=== PATIENT | male | born 1950 | race Caucasian/White ===

== ENCOUNTER 2017-04-10 09:38 | Emergency (ER) | payer MEDICAID, OTHER ==
[2017-04-10] MEDS ORDERED: Sodium Chloride 0.9% 500 ML IV ONE (09:49)
[2017-04-10] MEDS ORDERED: Sodium Chloride 0.9% 10 ML Syringe FLUSH PRN (09:49)
--- NOTE | 2017-04-10 10:26 | CT ---
Head CT Technique: Multiple axial sections through the brain were obtained. Intravenous contrast was not utilized. Comparison: No previous intracranial imaging. Findings: Parenchymal hemorrhage is identified within the right basal ganglia. This area of hemorrhage measures 1.5 cm in size and shows surrounding edema. No other areas of intracranial hemorrhage are seen. Mild diminished density is noted within the periventricular white matter compatible with small vessel ischemic demyelination change. No midline shift or mass effect is appreciated. Vascular calcification is seen within the right vertebral artery. Bone window settings were reviewed which shows mild mucosal thickening within the ethmoid sinuses and mild mucosal thickening within the frontal sinuses. No acute calvarial abnormality is seen. Impression: 1. Right-sided basal ganglia hemorrhage. Please correlate if patient is hypertensive. 2. Other senescent change as described above. 3. Sinus disease most likely chronic but please correlate. Diagnostic code #5
--- NOTE | 2017-04-10 11:04 | EDM.PDOC ---
ED HPI GENERAL MEDICAL PROBLEM - General Chief Complaint: Neuro Symptoms/Deficits Stated Complaint: LT SIDE TINGLY AND TROUBLE WALKING Time Seen by Provider: 04/10/17 09:48 Source of Information: Reports: Patient, RN Notes Reviewed - History of Present Illness INITIAL COMMENTS - FREE TEXT/NARRATIVE: 66-year-old male comes in with three-day history of stroke type symptoms. Symptoms began this past Monday 3 days ago onset of left foot and left leg clumsiness and weakness. Around the same time he did develop paresthesias of his left hand and some weakness and clumsiness of the left hand as well. He states that for the first day or 2 it was difficult to walk and he could not do anything fine motor with his left hand or arm. Symptoms gradually became better yesterday and today he feels that he is getting back close to normal. He still feels that he is a bit weak and clumsy with his left foot and leg. He feels that his left hand strength is about back to normal. The paresthesias of his hand and arm are gone. He did have some mild left facial paresthesias and they also are gone. He never had any headache or chest pain with this. No nausea vomiting. No visual or speech difficulty. - Related Data Allergies Allergy/AdvReac Type Severity Reaction Status Date / Time No Known Allergies Allergy Verified 07/13/15 12:27 Home Meds: Home Meds amLODIPine [Norvasc] 10 mg PO BEDTIME #30 tablet 07/13/15 [Rx] Aspirin [Ecotrin] 81 mg PO DAILY 04/10/17 [History] FLUoxetine [PROzac] 20 mg PO DAILY 04/10/17 [History] Hydrochlorothiazide 25 mg PO DAILY 04/10/17 [History] atorvaSTATin [Lipitor] 10 mg PO DAILY 04/10/17 [History] Past Medical History Cardiovascular History: Reports: High Cholesterol, Hypertension Respiratory History: Reports: COPD Psychiatric History: Reports: Addiction, Anxiety, Panic Attack Social & Family History - Tobacco Use Smoking Status *Q: Current Some Day Smoker Years of Tobacco use: 25 Packs/Tins Daily: 0.2 - Alcohol Use Days Per Week of Alcohol Use: 7 Number of Drinks Per Day: 10 Total Drinks Per Week: 70 - Recreational Drug Use Recreational Drug Use: No ED ROS GENERAL - Review of Systems Review Of Systems: See Below Constitutional: Denies: Fever, Chills, Diaphoresis HEENT: Denies: Throat Pain, Vertigo, Vision Change Respiratory: Denies: Shortness of Breath, Pleuritic Chest Pain Cardiovascular: Denies: Chest Pain GI/Abdominal: Denies: Abdominal Pain, Nausea, Vomiting Musculoskeletal: Denies: Neck Pain, Shoulder Pain, Arm Pain Skin: Reports: No Symptoms Neurological: Reports: Numbness (left hand and arm), Difficulty Walking, Weakness (left upper and left lower extremity, moderately severe at time of onset 3 days ago, now almost completely back to normal). Denies: Headache, Trouble Speaking ED EXAM, NEURO - Physical Exam Exam: See Below General Appearance: Alert, Anxious (mild) Eye Exam: Bilateral Eye: EOMI, PERRL Throat/Mouth: Normal Inspection, Normal Oropharynx Head Exam: Atraumatic. No: Facial Swelling Neck: Supple, Full Range of Motion Respiratory/Chest: No Respiratory Distress, Lungs Clear, Normal Breath Sounds Cardiovascular: Regular Rate, Rhythm GI/Abdominal: Soft, Non-Tender Neurological: Alert, Oriented x 3, Other (very slight ataxia left hand with finger to nose testing, no noticeable hairspring vibrator or strength deficit of the left hand or arm, good left lower extremity strength. When walking he still feels that his left foot and leg is "mildly weak", but ambulatory without difficulty at this time.) Back Exam: Normal Inspection. No: CVA Tenderness (L) Extremities: Normal Inspection, Normal Range of Motion Skin Exam: Warm, Dry, Normal Color Course - Vital Signs Last Recorded V/S: Last Vital Signs Temp 98.5 F 04/10/17 09:43 Pulse 75 04/10/17 12:46 Resp 16 04/10/17 13:01 BP 154/103 H 04/10/17 13:01 Pulse Ox 95 04/10/17 12:46 - Orders/Labs/Meds Orders: Active Orders 24 hr Category Date Time Status EKG 12 Lead [EKG Documentation Completion] [RC] STAT Care 04/10/17 09:48 Active Peripheral IV Care [RC] . DIRECTED Care 04/10/17 09:49 Active Sodium Chloride 0.9% [Saline Flush] Med 04/10/17 09:49 Active 10 ml FLUSH ASDIRECTED PRN Peripheral IV Insertion Adult [OM.PC] Stat Oth 04/10/17 09:49 Ordered Medication Orders Sodium Chloride (Saline Flush) 10 ml FLUSH ASDIRECTED PRN PRN Reason: Keep Vein Open Last Admin: 04/10/17 10:07 Dose: 10 ml Labs: Laboratory Tests 04/10/17 04/10/17 Range/Units 09:55 09:55 WBC 6.94 (4.23-9.07) K/mm3 RBC 5.30 (4.63-6.08) M/mm3 Hgb 14.4 (13.7-17.5) gm/L Hct 43.6 (40.1-51.0) % MCV 82.3 (79.0-92.2) fl MCH 27.2 (25.7-32.2) pg MCHC 33.0 (32.2-35.5) g/dl RDW Std Deviation 43.4 (35.1-43.9) fL Plt Count 297 (163-337) K/mm3 MPV 8.8 L (9.4-12.3) fl Neut % (Auto) 64.1 (34.0-67.9) % Lymph % (Auto) 23.5 (21.8-53.1) % [place] % (Auto) 7.1 (5.3-12.2) % Eos % (Auto) 4.3 (0.8-7.0) Baso % (Auto) 0.7 (0.1-1.2) % Neut # (Auto) 4.45 (1.78-5.38) K/mm3 Lymph # (Auto) 1.63 (1.32-3.57) K/mm3 [place] # (Auto) 0.49 (0.30-0.82) K/mm3 Eos # (Auto) 0.30 (0.04-0.54) K/mm3 Baso # (Auto) 0.05 (0.01-0.08) K/mm3 Sodium 138 (136-145) mEq/L Potassium 4.1 (3.5-5.1) mEq/L Chloride 103 (98-107) mEq/L Carbon Dioxide 25 (21-32) mEq/L Anion Gap 14.1 (5-15) BUN 14 (7-18) mg/dL Creatinine 0.8 (0.7-1.3) mg/dL Est Cr Clr Drug Dosing TNP Estimated GFR (MDRD) > 60 (>60) mL/min BUN/Creatinine Ratio 17.5 (14-18) Glucose 110 (80-115) mg/dL Calcium 9.5 (8.5-10.1) mg/dL Total Bilirubin 0.9 (0.2-1.0) mg/dL AST 16 (15-37) U/L ALT 32 (16-63) U/L Alkaline Phosphatase 62 (46-116) U/L Total Protein 8.2 (6.4-8.2) g/dl Albumin 4.4 (3.4-5.0) g/dl Globulin 3.8 gm/dL Albumin/Globulin Ratio 1.2 (1-2) Meds: Medications Generic Name Dose Route Start Last Admin Trade Name Freq PRN Reason Stop Dose Admin Sodium Chloride 10 ml 04/10/17 09:49 04/10/17 10:07 Saline Flush FLUSH 10 ml ASDIRECTED PRN Administration Keep Vein Open Discontinued Medications Generic Name Dose Route Start Last Admin Trade Name Freq PRN Reason Stop Dose Admin Sodium Chloride 500 mls @ 999 mls/hr 04/10/17 09:49 04/10/17 10:06 Normal Saline IV 04/10/17 10:19 999 mls/hr .BOLUS ONE Administration Labetalol HCl 20 mg 04/10/17 11:46 04/10/17 11:59 Normodyne IVPUSH 04/10/17 11:47 20 mg ONETIME ONE Administration Protocol Labetalol HCl 20 mg 04/10/17 12:40 04/10/17 12:45 Normodyne IVPUSH 04/10/17 12:41 20 mg ONETIME ONE Administration Protocol Lorazepam 0.5 mg 04/10/17 12:00 04/10/17 12:07 Ativan IVPUSH 04/10/17 12:01 0.5 mg ONETIME ONE Administration - Re-Assessments/Exams Free Text/Narrative Re-Assessment/Exam: 04/10/17 14:57 stroke alert was called upon patient arrival. I did see patient within one or 2 minutes of arrival to ED. Note he did present private vehicle having first either called or presenting to the clinic and instructed to immediately come here to the ED. History is as documented with onset of symptoms fairly suddenly [address] did show 1.5 cm hemorrhage of the right basal ganglia region , see Radiologist report for details. We did call [facility] call with request to visit with Neurologist [employer] conservation laborer. I was initially referred to the Neurosurgeon [employer] conservation laborer, Dr Clark who was very helpful in discussing the case. He states there is really nothing that he as a Neurosurgeon can or would do for this patient. He stated treatment needs to be medical management, blood pressure control. I did request to visit with the Neurologist [employer] laborer regarding appropriate management and plan for this patient. I was informed by the [facility] Nurse that when he heard about what the patient had he replied "there is nothing for me to do" and refused to speak to me regarding further management. I did visit with one of the Hospitalists [employer] conservation laborer who was willing to accept the patient in transfer but advises that we should be able to admit and manage the patient here, especially with the 3 day hx of marked improvment. Patient absolutely refuses to be admitted when I discussed that with him. He states he gets extremely anxious and stressed when in a hospital and "will do much better at home". I discussed with him the severity of having had this intracerebral hemorrhage and the possibility that this could progress if blood pressure not given optimal medical management. Have stressed to him that with him going home we cannot monitor and manage his blood pressure to the extent that we could if he were here in the hospital. He continues to insist that he be allowed to go home, absolutely unwilling to come into the hospital at this time. Therefore we have had him sign out AMA with awareness of the risk of going home, the risk of further hemorrhage, more severe stroke and possibly even . I'm going to add metoprolol 50 mg twice a day to the amlodipine and hydrochlorothiazide that he is already taking. He has been advised to have his blood pressure checked once or twice daily, keep a log. Discussed this with Dr Palomares, His Family Phys. we'll see him at the clinic this next morning 3 days from now. Discharge instructions as documented. labs are as documented EKG shows sinus rhythm, rate 81, no ectopy. But pressure was high and arrival, improved and then did work its way higher again intermittently. Therefore he was treated with labetalol 20 mg IV 2. Departure - Departure Time of Disposition: 12:46 Disposition: Home, Self-Care 01 Condition: Fair Clinical Impression: Hypertensive intracerebral hemorrhage - Discharge Information Instructions: Stroke Prevention, [id number] Referrals: Edith Calvert MD [Primary Care Provider] - Forms: ED Department Discharge Additional Instructions: Hospital admission has strongly been advised. You have chosen to go home and accept the risk of going home. Stop your daily aspirin, continue amlodipine, hydrochlorothiazide and Lipitor as previously prescribed. Metoprolol 50 mg twice daily starting today. Low-salt healthy diet. Try have your blood pressure checked once or twice daily and keep a record of your blood pressure and heart rate from each reading for Dr. Palomares. see Dr. Delgado 11:15 this morning at the clinic. Return to ED if symptoms worsening in any way. - My Orders Last 24 Hours: My Active Orders 04/10/17 09:48 EKG 12 Lead [EKG Documentation Completion] [RC] STAT 04/10/17 09:49 Peripheral IV Care [RC] . DIRECTED Sodium Chloride 0.9% [Saline Flush] 10 ml FLUSH ASDIRECTED PRN Peripheral IV Insertion Adult [OM.PC] Stat - Assessment/Plan Last 24 Hours: My Active Orders 04/10/17 09:48 EKG 12 Lead [EKG Documentation Completion] [RC] STAT 04/10/17 09:49 Peripheral IV Care [RC] . DIRECTED Sodium Chloride 0.9% [Saline Flush] 10 ml FLUSH ASDIRECTED PRN Peripheral IV Insertion Adult [OM.PC] Stat
[2017-04-10] MEDS ORDERED: Labetalol 100 MG/20 ML MDV IVPUSH ONE ×2 (11:46→12:40)
[2017-04-10] MEDS ORDERED: LORazepam 2 MG/ML MDV IVPUSH ONE (12:00)
[2017-04-10 13:12] VITALS: BP 154/103
== END 2017-04-10 13:32 | disposition home or self-care (01) ==
LOC: JD.ED 09:38
DX: I61.9 Nontraumatic intracerebral hemorrhage, unspecified (principal); I10 Essential (primary) hypertension; F17.210 Nicotine dependence, cigarettes, uncomplicated; E78.00 Pure hypercholesterolemia, unspecified; Z79.82 Long term (current) use of aspirin; Z79.899 Other long term (current) drug therapy
CPT/HCPCS: 36415; 70450; 80053; 85025; 93005; 96361; 96374; 96375; 96376; 99285; J2060; J7040; J7050

== ENCOUNTER 2018-07-22 16:46 | Emergency (ER) | payer MEDICARE, MEDICAID ==
[2018-07-22] MEDS ORDERED: LORazepam 2 MG/ML SDV IVPUSH ONE (17:59)
[2018-07-22 19:25] VITALS: BP 163/102
--- NOTE | 2018-07-22 19:29 | CR ---
Chest: Portable view of the chest was obtained. Comparison: Prior chest x-ray of 07/13/15. Heart size and mediastinum are within normal limits for portable technique. Small nodular density is noted within the left upper chest. Lungs otherwise are clear. Bony structures are grossly intact. Impression: 1. Small nodular density within the left upper chest, small mass is difficult to completely exclude. Noncontrast chest CT is recommended (can be performed non-emergently) to further evaluate. 2. Nothing acute is otherwise seen on portable chest x-ray. Diagnostic code #9
--- NOTE | 2018-07-22 20:13 | EDM.PDOC ---
ED HPI GENERAL MEDICAL PROBLEM - General Chief Complaint: Drug or Alcohol Abuse Stated Complaint: [facility] Source of Information: Reports: Patient History Limitations: Reports: No Limitations - History of Present Illness Treatments [employer]: Reports: IV/IO - Related Data Allergies Allergy/AdvReac Type Severity Reaction Status Date / Time No Known Allergies Allergy Verified 07/22/18 16:52 Home Meds: Home Meds amLODIPine [Norvasc] 10 mg PO BEDTIME #30 tablet 07/13/15 [Rx] atorvaSTATin [Lipitor] 10 mg PO DAILY 04/10/17 [History] Citalopram [Citalopram HBr] 40 mg PO DAILY 07/22/18 [History] Citalopram [Citalopram HBr] 40 mg PO DAILY #40 tab 07/22/18 [Rx] LORazepam 1 mg PO ASDIRECTED PRN 07/22/18 [History] LORazepam [Ativan] 1 mg PO DAILY PRN #20 tablet 07/22/18 [Rx] amLODIPine Besylate [Norvasc] 10 mg PO DAILY #20 tablet 07/22/18 [Rx] atorvaSTATin [Lipitor] 10 mg PO BEDTIME #20 tab 07/22/18 [Rx] Past Medical History Cardiovascular History: Reports: High Cholesterol, Hypertension Respiratory History: Reports: COPD Neurological History: Reports: CVA Other Neuro History: cva 2017 Psychiatric History: Reports: Addiction, Anxiety, Panic Attack Dermatologic History: Reports: Other (See Below) Other Dermatologic History: acne Social & Family History - Tobacco Use Smoking Status *Q: Former Smoker Years of Tobacco use: 40 Packs/Tins Daily: 2 Used Tobacco, but Quit: Yes Month/Year Tobacco Last Used: Tobacco Use Comment: quit 2 months ago Second Hand Smoke Exposure: No - Caffeine Use Caffeine Use: Reports: Coffee - Alcohol Use Days Per Week of Alcohol Use: 5 Number of Drinks Per Day: 12 Total Drinks Per Week: 60 Date of Last Drink: 07/22/18 Time of Last Drink: 09:00 - Recreational Drug Use Recreational Drug Use: No EKG INTERPRETATION EKG Date: 07/22/18 Time: 18:11 Rhythm: NSR Rate (Beats/Min): 91 [place]: Normal P-Wave: Present QRS: Normal ST-T: Normal QT: Normal EKG Interpretation Comments: NSR at 91 bpm. Q waves inferior and anterior. No acute ST segment changes. Reviewed by myself and DR. Singh. Course - Vital Signs Last Recorded V/S: Last Vital Signs Temp 97.6 F 07/22/18 16:46 Pulse 99 07/22/18 18:20 Resp 18 07/22/18 16:46 BP 163/102 H 07/22/18 19:24 Pulse Ox 96 07/22/18 16:46 - Orders/Labs/Meds Orders: Active Orders 24 hr Category Date Time Status EKG 12 Lead [EKG Documentation Completion] [RC] STAT Care 07/22/18 18:03 Active Labs: Laboratory Tests 07/22/18 07/22/18 Range/Units 18:55 18:55 WBC 6.65 (4.23-9.07) K/mm3 RBC 5.72 (4.63-6.08) M/mm3 Hgb 14.8 (13.7-17.5) gm/L Hct 42.3 (40.1-51.0) % MCV 74.0 L (79.0-92.2) fl MCH 25.9 (25.7-32.2) pg MCHC 35.0 (32.2-35.5) g/dl RDW Std Deviation 38.1 (35.1-43.9) fL Plt Count 178 (163-337) K/mm3 MPV 8.6 L (9.4-12.3) fl Neut % (Auto) 74.3 H (34.0-67.9) % Lymph % (Auto) 18.2 L (21.8-53.1) % [place] % (Auto) 6.8 (5.3-12.2) % Eos % (Auto) 0.3 L (0.8-7.0) Baso % (Auto) 0.2 (0.1-1.2) % Neut # (Auto) 4.95 (1.78-5.38) K/mm3 Lymph # (Auto) 1.21 L (1.32-3.57) K/mm3 [place] # (Auto) 0.45 (0.30-0.82) K/mm3 Eos # (Auto) 0.02 L (0.04-0.54) K/mm3 Baso # (Auto) 0.01 (0.01-0.08) K/mm3 Manual Slide Review Abnormal smear Sodium 129 L (136-145) mEq/L Potassium 3.5 (3.5-5.1) mEq/L Chloride 90 L (98-107) mEq/L Carbon Dioxide 25 (21-32) mEq/L Anion Gap 17.5 H (5-15) BUN 9 (7-18) mg/dL Creatinine 0.7 (0.7-1.3) mg/dL Est Cr Clr Drug Dosing 118.90 mL/min Estimated GFR (MDRD) > 60 (>60) mL/min BUN/Creatinine Ratio 12.9 L (14-18) Glucose 128 H (80-115) mg/dL Calcium 8.5 (8.5-10.1) mg/dL Total Bilirubin 2.4 H (0.2-1.0) mg/dL AST 155 H (15-37) U/L ALT 171 H (16-63) U/L Alkaline Phosphatase 124 H (46-116) U/L Troponin I < 0.017 (0.00-0.056) ng/mL Total Protein 7.9 (6.4-8.2) g/dl Albumin 4.1 (3.4-5.0) g/dl Globulin 3.8 gm/dL Albumin/Globulin Ratio 1.1 (1-2) Ethyl Alcohol 0.00 (0.00) gm% Meds: Medications Discontinued Medications Generic Name Dose Route Start Last Admin Trade Name Freq PRN Reason Stop Dose Admin Amlodipine Besylate 10 mg 07/22/18 21:00 07/22/18 19:24 Norvasc PO 10 mg BEDTIME MECHLELE Administration Lorazepam 1 mg 07/22/18 17:59 07/22/18 18:04 Ativan IVPUSH 07/22/18 18:00 1 mg ONETIME ONE Administration - Radiology Interpretation Free Text/Narrative:: Chest: Portable view of the chest was obtained. Comparison: Prior chest x-ray of 07/13/15. Heart size and mediastinum are within normal limits for portable technique. Small nodular density is noted within the left upper chest. Lungs otherwise are clear. Bony structures are grossly intact. Impression: 1. Small nodular density within the left upper chest, small mass is difficult to completely exclude. Noncontrast chest CT is recommended (can be performed non-emergently) to further evaluate. 2. Nothing acute is otherwise seen on portable chest x-ray. Departure - Departure Time of Disposition: 20:10 Disposition: Home, Self-Care 01 Condition: Fair Clinical Impression: Hypertension, Hyponatremia, Lung nodule - Discharge Information *PRESCRIPTION DRUG MONITORING PROGRAM REVIEWED*: No *COPY OF PRESCRIPTION DRUG MONITORING REPORT IN PATIENT MISTY: No Prescriptions: amLODIPine Besylate [Norvasc] 10 mg PO DAILY #20 tablet atorvaSTATin [Lipitor] 10 mg PO BEDTIME #20 tab Citalopram [Citalopram HBr] 40 mg PO DAILY #40 tab LORazepam [Ativan] 1 mg PO DAILY PRN #20 tablet PRN Reason: Anxiety Instructions: Hyponatremia, Hypertension Referrals: PCP,None [Primary Care Provider] - Edith Calvert MD [Physician] - Additional Instructions: An order has been placed her you have a noncontrast chest CT to further evaluate the lung nodule. Results will be sent to your PCP. If you do not hear from radiology, call [phone] and ask for radiology to schedule this. Continue taking your medications as prescribed. Follow-up with your PCP within [address] results and a check of your HTN and low sodium. You sodium was slightly low, recommend gatorade, powerade and increasing your salt intake. Check you b/p every other day at different times throughout the day after resting 15 minutes. Record this and bring to your follow-up appointment. Please return to ER for symptoms change or worsen. - My Orders Last 24 Hours: My Active Orders 07/22/18 18:03 EKG 12 Lead [EKG Documentation Completion] [RC] STAT - Assessment/Plan Last 24 Hours: My Active Orders 07/22/18 18:03 EKG 12 Lead [EKG Documentation Completion] [RC] STAT
[2018-07-22] MEDS ORDERED: amLODIPine 10 MG Tab PO SCH (21:00)
== END 2018-07-22 20:45 | disposition home or self-care (01) ==
LOC: JD.ED 16:46
DX: I10 Essential (primary) hypertension (principal); E87.1 Hypo-osmolality and hyponatremia; R91.1 Solitary pulmonary nodule; F41.0 Panic disorder [episodic paroxysmal anxiety]; F41.9 Anxiety disorder, unspecified; E78.00 Pure hypercholesterolemia, unspecified; J44.9 Chronic obstructive pulmonary disease, unspecified; Z86.73 Personal history of transient ischemic attack (TIA), and cerebral infarction without residual deficits; Z87.891 Personal history of nicotine dependence; Z79.899 Other long term (current) drug therapy
CPT/HCPCS: 36415; 71045; 80053; 84484; 85025; 93005; 96374; 99285; A9270; G0480; J2060

== ENCOUNTER 2019-12-02 15:07 | Emergency (ER) | payer MEDICARE, MEDICAID ==
[2019-12-02 15:18] VITALS: PULSE 92
[2019-12-02 15:33] VITALS: BP 161/93
[2019-12-02] MEDS ORDERED: Citalopram 20 MG Tab PO ONE (16:02)
[2019-12-02] MEDS ORDERED: LORazepam 2 MG/ML SDV IVPUSH ONE (16:02)
--- NOTE | 2019-12-02 16:12 | EDM.PDOCBH ---
ED HPI GENERAL MEDICAL PROBLEM - General Chief Complaint: Behavioral/Psych Stated Complaint: [facility] Time Seen by Provider: 12/02/19 15:37 Source of Information: Reports: Patient, RN Notes Reviewed History Limitations: Reports: No Limitations - History of Present Illness INITIAL COMMENTS - FREE TEXT/NARRATIVE: Patient is a 69-year-old male who presents to the ED for the evaluation of his ongoing anxiety. Patient was brought here by [place] ambulance service. The patient notes that he takes citalopram, 40 mg daily and lorazepam 1 mg every 4- 6 hours as needed. Patient notes that he ran out of his medication last week, and has been using alcohol to bridge his anxiety since then. He notes that his last drink was a few hours ago. He states prior to running out of medications he does not use alcohol on a daily basis. The patient states that he has had increased anxiety at home, and states that he ran out of his medications due to taking them more frequently than prescribed to try to curb his anxiety. He was not able to get in touch with Dr. Palomares prior to his prescription running out for a refill. The ambulance did give him 2 mg Ativan in route to the hospital with 500 mL of IV fluid. The patient's primary care provider is Dr. Edith Palomares. - Related Data Allergies Allergy/AdvReac Type Severity Reaction Status Date / Time No Known Allergies Allergy Verified 07/22/18 16:52 Home Meds: Home Meds amLODIPine [Norvasc] 10 mg PO BEDTIME #30 tablet 07/13/15 [Rx] Citalopram [Citalopram HBr] 40 mg PO BEDTIME 07/22/18 [History] LORazepam 1 mg PO ASDIRECTED PRN 07/22/18 [History] atorvaSTATin [Lipitor] 10 mg PO BEDTIME #20 tab 07/22/18 [Rx] Citalopram [Citalopram HBr] 40 mg PO BEDTIME #14 tab 12/02/19 [Rx] LORazepam [Ativan] 1 mg PO TID PRN #20 tab 12/02/19 [Rx] Past Medical History Cardiovascular History: Reports: High Cholesterol, Hypertension Respiratory History: Reports: COPD Neurological History: Reports: CVA Other Neuro History: cva 2016 Psychiatric History: Reports: Addiction, Anxiety, Panic Attack Dermatologic History: Reports: Other (See Below) Other Dermatologic History: acne Social & Family History - Tobacco Use Smoking Status *Q: Light Tobacco Smoker Years of Tobacco use: 40 Packs/Tins Daily: 0.1 - Caffeine Use Caffeine Use: Reports: Coffee - Recreational Drug Use Recreational Drug Use: Yes Drug Use in Last 12 Months: No Recreational Drug Type: Reports: Cocaine ED ROS GENERAL - Review of Systems Review Of Systems: Comprehensive ROS is negative, except as noted in HPI. ED EXAM, BEHAVIORAL HEALTH - Physical Exam Exam: See Below Exam Limited By: No Limitations General Appearance: Alert, WD/WN, No Apparent Distress, Anxious (mildy anxious) Eye Exam: Bilateral Eye: EOMI Ears: Normal External Exam Nose: Normal Inspection Throat/Mouth: Normal Inspection, Normal Lips, Normal Teeth, Normal Gums, Normal Oropharynx, Normal Voice, No Airway Compromise Head: Atraumatic, Normocephalic Neck: Normal Inspection Respiratory/Chest: No Respiratory Distress, Lungs Clear, Normal Breath Sounds, No Accessory Muscle Use, Chest Non-Tender Cardiovascular: Normal Peripheral Pulses, Regular Rate, Rhythm, No Murmur GI/Abdominal: Normal Bowel Sounds, Soft, Non-Tender, No Distention, No Mass Extremities: Normal Inspection, Normal Capillary Refill Neurological: Alert, Normal Mood/Affect, Normal Cognition, Normal Reflexes, No Motor/Sensory Deficits, Oriented x 3 Psychiatric: Alert, Normal Affect, Normal Cognition, Normal Mood, Oriented Skin Exam: Warm, Dry, Intact, Normal color, No rash COURSE, BEHAVIORAL HEALTH COMP - Course Vital Signs: Last Vital Signs Temp 98.0 F 12/02/19 15:09 Pulse 92 12/02/19 15:09 Resp 20 12/02/19 15:09 BP 161/93 H 12/02/19 15:33 Pulse Ox 91 L 12/02/19 15:09 Orders, Labs, Meds: Active Orders 24 hr Category Date Time Status LORazepam [Ativan] Med 12/02/19 16:16 Once 4 mg PO ONETIME ONE Medications Discontinued Medications Generic Name Dose Route Start Last Admin Trade Name Freq PRN Reason Stop Dose Admin Citalopram Hydrobromide 40 mg 12/02/19 16:02 Celexa PO 12/02/19 16:03 ONETIME ONE Lorazepam 1 mg 12/02/19 16:02 Ativan IVPUSH 12/02/19 16:03 ONETIME ONE Discharge vs Psych Eval/Treatment:: 12/02/19 16:10 Patient presents to the ED for evaluation of a few different complaints. Have ordered 1 mg Ativan IV push, and 40 mg p.o. citalopram to get him back on his regular regimen. There are no emergent problems made apparent at today's visit , patient does not want any sort of labs done at this time, and again there is no emergent condition noted today to have to warrant further laboratory evaluation. I will provide the patient with a prescription for at least 1 weeks worth of his regular medications in hopes that he can get in with Dr. Palomares sooner to have her reevaluate his med regimen and refill his prescriptions as needed. Departure - Departure Time of Disposition: 16:12 Disposition: Home, Self-Care 01 Condition: Good Clinical Impression: Anxiety - Discharge Information *PRESCRIPTION DRUG MONITORING PROGRAM REVIEWED*: Yes *COPY OF PRESCRIPTION DRUG MONITORING REPORT IN PATIENT MISTY: No Prescriptions: Citalopram [Citalopram HBr] 40 mg PO BEDTIME #14 tab LORazepam [Ativan] 1 mg PO TID PRN #20 tab PRN Reason: Anxiety Instructions: Living With Anxiety Referrals: Edith Calvert MD [Physician] - Forms: ED Department Discharge Additional Instructions: You were evaluated in the ER today regarding your need for a prescription refill , and increased anxiety. You were given 1 more dose of Ativan in the ER, and the dose of your regular antianxiety medication, citalopram. You were given a prescription for outpatient use of this, you will need to fill this at the [place] pharmacy tomorrow. You were given 2 doses of Ativan, you will need to take 2 mg tonight, and again 2 mg in the morning. You will need to call and have a talk with your provider, Dr. Palomares to obtain an appointment for reevaluation and to see if she would like to switch her medications or increase her dosage, or otherwise. Please return to the ER at any time if symptoms change or worsen. Sepsis Event Note - Evaluation Sepsis Screening Result: No Definite Risk - Focused Exam Vital Signs: Vital Signs Temp Pulse Resp BP Pulse Ox 12/02/19 15:33 161/93 H 12/02/19 15:09 98.0 F 92 20 186/105 H 91 L Date Exam was Performed: 12/02/19 Time Exam was Performed: 16:17 - My Orders Last 24 Hours: My Active Orders 12/02/19 16:16 LORazepam [Ativan] 4 mg PO ONETIME ONE - Assessment/Plan Last 24 Hours: My Active Orders 12/02/19 16:16 LORazepam [Ativan] 4 mg PO ONETIME ONE
[2019-12-02] MEDS ORDERED: LORazepam 1 MG Tab PO ONE (16:16)
== END 2019-12-02 16:37 | disposition home or self-care (01) ==
LOC: JD.ED 15:07
DX: F41.9 Anxiety disorder, unspecified (principal); I10 Essential (primary) hypertension; E78.00 Pure hypercholesterolemia, unspecified; F17.210 Nicotine dependence, cigarettes, uncomplicated; Z79.899 Other long term (current) drug therapy
CPT/HCPCS: 96374; 99284; A9270; J2060; 99283

== ENCOUNTER 2021-10-17 14:34 | Emergency (ER) | payer MEDICARE, MEDICAID ==
[2021-10-17 14:44] VITALS: BP 133/111; PULSE 91
[2021-10-17] MEDS ORDERED: Acetaminophen 325 MG Tab PO ONE (15:22)
== END 2021-10-17 16:24 | disposition home or self-care (01) ==
LOC: JD.ED 14:34
DX: S82.832A Other fracture of upper and lower end of left fibula, initial encounter for closed fracture (principal); J44.9 Chronic obstructive pulmonary disease, unspecified; E78.00 Pure hypercholesterolemia, unspecified; I10 Essential (primary) hypertension; Z72.0 Tobacco use; Z79.899 Other long term (current) drug therapy; Z86.16 Personal history of COVID-19; W18.39XA Other fall on same level, initial encounter
CPT/HCPCS: 73610; 99283; A9270

== ENCOUNTER 2021-11-03 09:16 | Day surgery (SDC) | payer MEDICARE, MEDICAID ==
[~2021-11-03 09:16] MED LIST: Albuterol 0.083% 2.5 MG/3 ML Neb Soln NEB ONE; Lactated Ringers 1,000 ML IV SCH; Lidocaine 1%/Sod Bicarbonate in NS 8.4% 1 ML Syringe IDERM PRN; Sodium Chloride 0.9% 10 ML Syringe FLUSH PRN; Sodium Chloride 0.9% 10 ML Syringe FLUSH SCH
[2021-11-03] MEDS ORDERED: Ropivacaine 0.5% 5 MG/ML 30 ML SDV ONE (10:00)
[2021-11-03] MEDS ORDERED: EPINEPHrine 1 MG/ML SDV ONE (10:00)
[2021-11-03] MEDS ORDERED: Midazolam 1 MG/ML 2 ML SDV ONE ×2 (10:09→10:45)
[2021-11-03] MEDS ORDERED: fentaNYL 100 MCG/2 ML SDV ONE (10:09)
[2021-11-03] MEDS ORDERED: Ondansetron 4 MG/2 ML SDV ONE (10:45)
[2021-11-03] MEDS ORDERED: Propofol 200 MG/20 ML SDV ONE ×2 (10:45→11:02)
[2021-11-03] MEDS ORDERED: Lidocaine 1% 4 ML ONE (10:45)
[2021-11-03] MEDS ORDERED: fentaNYL 250 MCG/5 ML SDV ONE (10:46)
[2021-11-03] MEDS ORDERED: Bupivacaine 0.25% 10 ML SDV ONE (10:47)
[2021-11-03] MEDS ORDERED: ceFAZolin 1 GM Vial ONE (11:08)
[2021-11-03] MEDS ORDERED: fentaNYL 100 MCG/2 ML SDV IVPUSH PRN (11:24)
[2021-11-03] MEDS ORDERED: Ondansetron 4 MG/2 ML SDV IVPUSH PRN (11:24)
[2021-11-03] MEDS ORDERED: HYDROmorphone 0.5 MG/0.5 ML Syringe IVPUSH PRN (11:24)
[2021-11-03] MEDS ORDERED: Ketorolac 15 MG/ML SDV ONE (12:22)
[2021-11-03] MEDS ORDERED: Acetaminophen/HYDROcodone 325-5 MG Tab PO ONE (13:30)
[2021-11-03 14:38] VITALS: BP 130/74; PULSE 70
== END 2021-11-03 14:05 | disposition home or self-care (01) ==
LOC: JD.SDS 09:16
PROVIDERS: ATTEND Orthopaedic Surgery
DX: S82.842A Displaced bimalleolar fracture of left lower leg, initial encounter for closed fracture (principal); J45.30 Mild persistent asthma, uncomplicated; I10 Essential (primary) hypertension; F17.210 Nicotine dependence, cigarettes, uncomplicated; E78.00 Pure hypercholesterolemia, unspecified; J44.9 Chronic obstructive pulmonary disease, unspecified; Z79.899 Other long term (current) drug therapy; Z98.890 Other specified postprocedural states
CPT/HCPCS: 27814; 27829; 36415; 76000; 85610; 85730; C1713; C1776; J0171; J0690; J1885; J2250; J2405; J2704; J2795; J3010; J3490; J7120; 01480; 64450; 76942

== ENCOUNTER 2023-04-13 22:16 | Emergency (ER) | payer MEDICAID, MEDICARE ==
[2023-04-13 22:49] LABS: BASOPHILS ABSOLUTE AUTO 0.1 K/mm3 (0.0-0.2); BASOPHILS PERCENT AUTO 0.6 % (0.0-1.0); EOSINOPHILS ABSOLUTE AUTO 0.2 K/mm3 (0.0-0.4); EOSINOPHILS PERCENT AUTO 1.5 % (0.0-6.0); HEMATOCRIT 45.6 % (42.0-52.0); HEMOGLOBIN 15.6 gm/dl (14.0-18.0); IMMATURE GRAN ABSOLUTE AUTO 0.06 K/mm3 (0.00-0.05); IMMATURE GRAN PERCENT AUTO 0.6 % (0.0-0.4); LYMPHOCYTES PERCENT AUTO 18.9 % (24.0-44.0); MEAN CORPUSCULAR HEMOGLOBIN 28.1 pg (28.0-32.0); MEAN CORPUSCULAR HGB CONC 34.2 g/dl (32.0-36.0); MEAN PLATELET VOLUME 8.4 fl (9.4-12.4); MONOCYTES ABSOLUTE AUTO 0.7 K/mm3 (0.0-0.8); MONOCYTES PERCENT AUTO 6.6 % (0.0-8.0); NEUTROPHILS ABSOLUTE AUTO 7.5 K/mm3 (1.8-7.7); NEUTROPHILS PERCENT AUTO 71.8 % (41.0-71.0); PLATELET COUNT,PLT 236 K/mm3 (150-400); RED BLOOD CELL COUNT 5.56 M/mm3 (4.52-5.90); WHITE BLOOD CELL COUNT,WBC 10.39 K/mm3 (3.9-11.3)
[2023-04-13 23:18] LABS: A/G RATIO 0.9 (1-2); ALBUMIN 3.8 g/dl (3.4-5.0); ANION GAP 16.7 (5-15); BILIRUBIN TOTAL 1.1 mg/dL (0.2-1.0); BUN/CREATININE RATIO 8.6 (14-18); CALCIUM 9.5 mg/dL (8.5-10.1); CREATININE 0.7 mg/dL (0.7-1.3); EST CRCL DRUG DOSING (CG) 114.17 mL/min; ETHANOL BLOOD MEDICAL 0.01 gm% (0.00); POTASSIUM,K 3.7 mEq/L (3.5-5.1); PROTEIN TOTAL,TP 7.9 g/dl (6.4-8.2); TSH 1.731 uIU/mL (0.358-3.74)
[2023-04-14 00:09] LABS: BARBITURATE SCREEN,URINE NEGATIVE (CUTOFF=200); BENZODIAZEPINES SCREEN,URINE PRESUMPTIVE POSITIVE (CUTOFF=150); BUPRENORPHINE SCREEN,URINE NEGATIVE (CUTOFF=10); METHADONE SCREEN, URINE NEGATIVE (CUT0FF=200); METHAMPHETAMINES SCREEN, URINE NEGATIVE (CUTOFF=500); OXYCODONE SCREEN,URINE NEGATIVE (CUT0FF=100); PROPOXYPHENE SCREEN,URINE NEGATIVE (CUTOFF=300); THC SCREEN,URINE 20 NG/ML NEGATIVE (CUTOFF=50)
[2023-04-14 00:14] LABS: AMPHETAMINES SCREEN, URINE NEGATIVE (CUTOFF=500)
[2023-04-14 01:55] VITALS: BP 163/94; PULSE 84
== END 2023-04-14 01:50 ==
LOC: JD.ED 22:16
DX: S06.5X0A Traumatic subdural hemorrhage without loss of consciousness, initial encounter (principal); E78.00 Pure hypercholesterolemia, unspecified; I10 Essential (primary) hypertension; J44.9 Chronic obstructive pulmonary disease, unspecified; Z86.73 Personal history of transient ischemic attack (TIA), and cerebral infarction without residual deficits; Z86.16 Personal history of COVID-19; Z79.01 Long term (current) use of anticoagulants; W19.XXXA Unspecified fall, initial encounter; Z79.899 Other long term (current) drug therapy
CPT/HCPCS: 36415; 70450; 70450-26; 72125; 72125-26; 73502-26-LT; 73502-LT; 73562-26-LT; 73562-LT; 80053; 80143; 80179; 80306; 80307; 84443; 85025; 93005; 93010; 99285

== ENCOUNTER 2023-10-23 19:33 | Emergency (ER) | payer MEDICARE ==
[2023-10-23 19:51] VITALS: BP 165/83; PULSE 101
== END 2023-10-23 20:28 | disposition home or self-care (01) ==
LOC: JD.ED 19:33
DX: S20.212A Contusion of left front wall of thorax, initial encounter (principal); F10.129 Alcohol abuse with intoxication, unspecified; I10 Essential (primary) hypertension; J44.89 Other specified chronic obstructive pulmonary disease; E78.00 Pure hypercholesterolemia, unspecified; Z79.899 Other long term (current) drug therapy; Z86.16 Personal history of COVID-19; Z79.01 Long term (current) use of anticoagulants; Y90.9 Presence of alcohol in blood, level not specified; W19.XXXA Unspecified fall, initial encounter
CPT/HCPCS: 99284

== ENCOUNTER 2024-01-14 21:22 | Emergency (ER) | payer MEDICARE ==
[2024-01-14 21:56] LABS: BASOPHILS ABSOLUTE AUTO 0.1 K/mm3 (0.0-0.2); BASOPHILS PERCENT AUTO 0.6 % (0.0-1.0); EOSINOPHILS ABSOLUTE AUTO 0.2 K/mm3 (0.0-0.4); HEMATOCRIT 40.1 % (42.0-52.0); HEMOGLOBIN 13.1 gm/dl (14.0-18.0); IMMATURE GRAN ABSOLUTE AUTO 0.07 K/mm3 (0.00-0.05); IMMATURE GRAN PERCENT AUTO 0.8 % (0.0-0.4); LYMPHOCYTES PERCENT AUTO 22.5 % (24.0-44.0); MEAN CORPUSCULAR HEMOGLOBIN 27.2 pg (28.0-32.0); MEAN CORPUSCULAR HGB CONC 32.7 g/dl (32.0-36.0); MEAN CORPUSCULAR VOLUME 83.4 fl (83.0-99.0); MONOCYTES ABSOLUTE AUTO 0.6 K/mm3 (0.0-0.8); MONOCYTES PERCENT AUTO 6.5 % (0.0-8.0); NEUTROPHILS ABSOLUTE AUTO 6.1 K/mm3 (1.8-7.7); NEUTROPHILS PERCENT AUTO 67.6 % (41.0-71.0); PLATELET COUNT,PLT 259 K/mm3 (150-400); RED BLOOD CELL COUNT 4.81 M/mm3 (4.52-5.90); WHITE BLOOD CELL COUNT,WBC 9.06 K/mm3 (3.9-11.3)
[2024-01-14 22:18] LABS: ALBUMIN 3.5 g/dl (3.4-5.0); ANION GAP 14.6 (5-15); BILIRUBIN TOTAL 0.9 mg/dL (0.2-1.0); BUN/CREATININE RATIO 12.9 (14-18); CALCIUM 9.1 mg/dL (8.5-10.1); CREATININE 0.7 mg/dL (0.7-1.3); EST CRCL DRUG DOSING (CG) 106.24 mL/min; ETHANOL BLOOD MEDICAL 0.24 gm% (0.00); MAGNESIUM 1.9 mg/dL (1.8-2.4); POTASSIUM,K 3.6 mEq/L (3.5-5.1)
[2024-01-14 23:26] LABS: APPEARANCE,URINE CLEAR (Clear); BILIRUBIN,URINE NEGATIVE (Negative); COLOR,URINE LIGHT YELLOW (Yellow); GLUCOSE,URINE NEGATIVE (Negative); KETONES,URINE NEGATIVE (Negative); LEUKOCYTE ESTERASE,URINE NEGATIVE (Negative); NITRITE,URINE NEGATIVE (Negative); OCCULT BLOOD,URINE TRACE-LYSED (Negative); PH,URINE 6.5 (5.0-8.0); PROTEIN,URINE NEGATIVE (Negative); UROBILINOGEN,URINE 0.2 (0.2-1.0)
[2024-01-14 23:37] LABS: BARBITURATE SCREEN,URINE NEGATIVE (CUTOFF=200); BENZODIAZEPINES SCREEN,URINE PRESUMPTIVE POSITIVE (CUTOFF=150); BUPRENORPHINE SCREEN,URINE NEGATIVE (CUTOFF=10); METHADONE SCREEN, URINE NEGATIVE (CUT0FF=200); METHAMPHETAMINES SCREEN, URINE NEGATIVE (CUTOFF=500); OXYCODONE SCREEN,URINE NEGATIVE (CUT0FF=100); THC SCREEN,URINE 20 NG/ML NEGATIVE (CUTOFF=50)
[2024-01-14 23:38] LABS: AMPHETAMINES SCREEN, URINE NEGATIVE (CUTOFF=500)
[2024-01-14 23:45] LABS: RBC,URINE 0-5 /hpf (0-5); WBC,URINE 0-5 /hpf (0-5)
[2024-01-14 23:46] LABS: BACTERIA,URINE RARE /hpf (FEW); EPITHELIAL CELLS,URINE 0-5 /hpf (0-5); MUCUS,URINE NOT SEEN /hpf (FEW)
[2024-01-15] MEDS: Acetaminophen 325 MG Tab PO ONE (05:44)
[2024-01-15] MEDS: LORazepam 1 MG Tab PO ONE (08:57)
[2024-01-15] MEDS: Citalopram 20 MG Tab PO ONE (08:58)
[2024-01-15] MEDS: chlordiazePOXIDE 25 MG Cap PO ONE (10:56)
[2024-01-15 18:22] VITALS: BP 139/74; PULSE 75
== END 2024-01-15 12:20 | disposition home or self-care (01) ==
LOC: JD.ED 21:22
DX: F10.130 Alcohol abuse with withdrawal, uncomplicated (principal); F13.120 Sedative, hypnotic or anxiolytic abuse with intoxication, uncomplicated; I10 Essential (primary) hypertension; J44.9 Chronic obstructive pulmonary disease, unspecified; Z86.73 Personal history of transient ischemic attack (TIA), and cerebral infarction without residual deficits; Z86.16 Personal history of COVID-19; Z79.899 Other long term (current) drug therapy
CPT/HCPCS: 36415; 70450; 80053; 80306; 80307; 81001; 83735; 85025; 99284; A9270

== ENCOUNTER 2024-01-22 21:44 | Emergency (ER) | payer MEDICARE ==
[2024-01-22 22:05] LABS: BASOPHILS ABSOLUTE AUTO 0.1 K/mm3 (0.0-0.2); BASOPHILS PERCENT AUTO 0.7 % (0.0-1.0); EOSINOPHILS ABSOLUTE AUTO 0.2 K/mm3 (0.0-0.4); EOSINOPHILS PERCENT AUTO 2.2 % (0.0-6.0); HEMOGLOBIN 13.6 gm/dl (14.0-18.0); IMMATURE GRAN ABSOLUTE AUTO 0.09 K/mm3 (0.00-0.05); IMMATURE GRAN PERCENT AUTO 0.8 % (0.0-0.4); LYMPHOCYTES ABSOLUTE AUTO 3.7 K/mm3 (1.0-4.8); LYMPHOCYTES PERCENT AUTO 34.9 % (24.0-44.0); MEAN CORPUSCULAR HEMOGLOBIN 27.5 pg (28.0-32.0); MEAN CORPUSCULAR HGB CONC 33.2 g/dl (32.0-36.0); MEAN CORPUSCULAR VOLUME 82.8 fl (83.0-99.0); MEAN PLATELET VOLUME 8.1 fl (9.4-12.4); MONOCYTES ABSOLUTE AUTO 0.7 K/mm3 (0.0-0.8); MONOCYTES PERCENT AUTO 6.4 % (0.0-8.0); NEUTROPHILS ABSOLUTE AUTO 5.9 K/mm3 (1.8-7.7); PLATELET COUNT,PLT 266 K/mm3 (150-400); RED BLOOD CELL COUNT 4.95 M/mm3 (4.52-5.90); WHITE BLOOD CELL COUNT,WBC 10.69 K/mm3 (3.9-11.3)
[2024-01-22] MEDS: Sodium Chloride 0.9% 10 ML Syringe FLUSH PRN (22:06)
[2024-01-22 22:30] LABS: ALANINE AMINOTRANSFERASE,ALT 46 U/L (16-63); ALBUMIN 3.9 g/dl (3.4-5.0); ALKALINE PHOSPHATASE 90 U/L (46-116); ANION GAP 18.4 (5-15); ASPARTATE AMNIOTRANSFERASE,AST 21 U/L (15-37); BLOOD UREA NITROGEN,BUN 7 mg/dL (7-18); CALCIUM 9.4 mg/dL (8.5-10.1); CARBON DIOXIDE,CO2 21 mEq/L (21-32); CHLORIDE,CL 99 mEq/L (98-107); CREATININE 0.7 mg/dL (0.7-1.3); EST CRCL DRUG DOSING (CG) 106.24 mL/min; ESTIMATED GFR 99 mL/min (>60); GLUCOSE RANDOM 85 mg/dL (70-99); LIPASE 18 U/L (16-77); POTASSIUM,K 3.4 mEq/L (3.5-5.1); PROTEIN TOTAL,TP 7.7 g/dl (6.4-8.2); SODIUM,NA 135 mEq/L (136-145)
[2024-01-22 22:31] LABS: ETHANOL BLOOD MEDICAL 0.13 gm% (0.00)
[2024-01-22 22:43] LABS: TROPONIN I HIGH SENSITIVITY < 4 pg/mL (<=76)
[2024-01-23 05:57] VITALS: PULSE 82
[2024-01-23 11:23] VITALS: BP 154/89
== END 2024-01-23 10:34 | disposition home or self-care (01) ==
LOC: JD.ED 21:44
DX: R07.89 Other chest pain (principal); I10 Essential (primary) hypertension; J44.9 Chronic obstructive pulmonary disease, unspecified; Z86.16 Personal history of COVID-19; Z79.899 Other long term (current) drug therapy
CPT/HCPCS: 36415; 71045; 71045-26; 80053; 80307; 83690; 84484; 85025; 93005; 93010; 99282; 99285; J3490

== ENCOUNTER 2024-02-02 20:24 | Emergency (ER) | payer MEDICARE ==
[2024-02-02 20:50] LABS: APPEARANCE,URINE CLEAR (Clear); BILIRUBIN,URINE NEGATIVE (Negative); COLOR,URINE YELLOW (Yellow); GLUCOSE,URINE NEGATIVE (Negative); KETONES,URINE TRACE (Negative); LEUKOCYTE ESTERASE,URINE NEGATIVE (Negative); NITRITE,URINE NEGATIVE (Negative); OCCULT BLOOD,URINE 1+ (Negative); PROTEIN,URINE NEGATIVE (Negative); UROBILINOGEN,URINE 0.2 (0.2-1.0)
[2024-02-02 20:58] LABS: BASOPHILS ABSOLUTE AUTO 0.1 K/mm3 (0.0-0.2); BASOPHILS PERCENT AUTO 1.1 % (0.0-1.0); EOSINOPHILS ABSOLUTE AUTO 0.2 K/mm3 (0.0-0.4); HEMATOCRIT 38.1 % (42.0-52.0); HEMOGLOBIN 12.7 gm/dl (14.0-18.0); IMMATURE GRAN ABSOLUTE AUTO 0.04 K/mm3 (0.00-0.05); IMMATURE GRAN PERCENT AUTO 0.5 % (0.0-0.4); LYMPHOCYTES ABSOLUTE AUTO 2.1 K/mm3 (1.0-4.8); LYMPHOCYTES PERCENT AUTO 28.1 % (24.0-44.0); MEAN CORPUSCULAR HEMOGLOBIN 27.5 pg (28.0-32.0); MEAN CORPUSCULAR HGB CONC 33.3 g/dl (32.0-36.0); MEAN CORPUSCULAR VOLUME 82.6 fl (83.0-99.0); MEAN PLATELET VOLUME 8.2 fl (9.4-12.4); MONOCYTES ABSOLUTE AUTO 0.6 K/mm3 (0.0-0.8); MONOCYTES PERCENT AUTO 7.8 % (0.0-8.0); NEUTROPHILS ABSOLUTE AUTO 4.6 K/mm3 (1.8-7.7); NEUTROPHILS PERCENT AUTO 60.5 % (41.0-71.0); PLATELET COUNT,PLT 231 K/mm3 (150-400); RED BLOOD CELL COUNT 4.61 M/mm3 (4.52-5.90); WHITE BLOOD CELL COUNT,WBC 7.55 K/mm3 (3.9-11.3)
[2024-02-02 21:00] LABS: EPITHELIAL CELLS,URINE 0-5 /hpf (0-5); RBC,URINE 0-5 /hpf (0-5); WBC,URINE 0-5 /hpf (0-5)
[2024-02-02 21:01] LABS: BACTERIA,URINE RARE /hpf (FEW); MUCUS,URINE NOT SEEN /hpf (FEW)
[2024-02-02 21:02] LABS: BARBITURATE SCREEN,URINE NEGATIVE (CUTOFF=200); BENZODIAZEPINES SCREEN,URINE NEGATIVE (CUTOFF=150); BUPRENORPHINE SCREEN,URINE NEGATIVE (CUTOFF=10); METHADONE SCREEN, URINE NEGATIVE (CUT0FF=200); METHAMPHETAMINES SCREEN, URINE NEGATIVE (CUTOFF=500); OXYCODONE SCREEN,URINE NEGATIVE (CUT0FF=100); THC SCREEN,URINE 20 NG/ML NEGATIVE (CUTOFF=50)
[2024-02-02 21:04] LABS: AMPHETAMINES SCREEN, URINE NEGATIVE (CUTOFF=500)
[2024-02-02] MEDS: OLANZapine 10 MG Vial IM ONE (21:12)
[2024-02-02 21:28] LABS: A/G RATIO 1.1 (1-2); ALBUMIN 3.7 g/dl (3.4-5.0); ANION GAP 19.4 (5-15); BILIRUBIN TOTAL 1.3 mg/dL (0.2-1.0); BUN/CREATININE RATIO 11.4 (14-18); CALCIUM 8.9 mg/dL (8.5-10.1); CREATININE 0.7 mg/dL (0.7-1.3); EST CRCL DRUG DOSING (CG) 109.39 mL/min; ETHANOL BLOOD MEDICAL 0.11 gm% (0.00); POTASSIUM,K 3.4 mEq/L (3.5-5.1); PROTEIN TOTAL,TP 7.2 g/dl (6.4-8.2); TSH 1.279 uIU/mL (0.358-3.74)
[2024-02-02 22:58] LABS: CORONAVIRUS COVID-19 NAA NEGATIVE (NEGATIVE); INFLUENZA A NAA NEGATIVE (NEGATIVE); RESPIRATORY SYNCYTIAL VIR NAA NEGATIVE (NEGATIVE)
[2024-02-03 13:31] VITALS: BP 130/66; PULSE 84
== END 2024-02-03 08:28 | disposition home or self-care (01) ==
LOC: JD.ED 20:24
DX: F10.10 Alcohol abuse, uncomplicated (principal); F41.1 Generalized anxiety disorder; I10 Essential (primary) hypertension; E78.00 Pure hypercholesterolemia, unspecified; J44.9 Chronic obstructive pulmonary disease, unspecified; Z86.73 Personal history of transient ischemic attack (TIA), and cerebral infarction without residual deficits; Z86.16 Personal history of COVID-19; Z79.899 Other long term (current) drug therapy; Y90.9 Presence of alcohol in blood, level not specified
CPT/HCPCS: 0241U; 36415; 80053; 80143; 80179; 80306; 80307; 81001; 84443; 85025; 93005; 96372; 99284; J2405; 93010; 99283

== ENCOUNTER 2024-02-15 14:56 | Emergency (ER) | payer MEDICARE ==
[2024-02-15] MEDS: LORazepam 1 MG Tab PO ONE (21:35)
[2024-02-15 22:45] VITALS: BP 135/94; PULSE 90
== END 2024-02-15 22:42 | disposition other institution (70) ==
LOC: JD.ED 14:56
DX: F41.1 Generalized anxiety disorder (principal); F10.130 Alcohol abuse with withdrawal, uncomplicated; I10 Essential (primary) hypertension; J45.909 Unspecified asthma, uncomplicated; Z86.16 Personal history of COVID-19; Z79.899 Other long term (current) drug therapy
CPT/HCPCS: 36415; 80307; 99285; A9270

== ENCOUNTER 2024-10-21 13:26 | Emergency (ER) | payer MEDICARE, MEDICAID ==
[2024-10-21 14:06] LABS: BASOPHILS PERCENT AUTO 0.6 % (0.0-1.0); EOSINOPHILS ABSOLUTE AUTO 0.1 K/mm3 (0.0-0.4); EOSINOPHILS PERCENT AUTO 1.7 % (0.0-6.0); IMMATURE GRAN ABSOLUTE AUTO 0.05 K/mm3 (0.00-0.05); IMMATURE GRAN PERCENT AUTO 0.7 % (0.0-0.4); LYMPHOCYTES ABSOLUTE AUTO 1.3 K/mm3 (1.0-4.8); LYMPHOCYTES PERCENT AUTO 18.2 % (24.0-44.0); MEAN CORPUSCULAR HEMOGLOBIN 29.4 pg (28.0-32.0); MEAN CORPUSCULAR HGB CONC 34.1 g/dl (32.0-36.0); MEAN PLATELET VOLUME 8.6 fl (9.4-12.4); MONOCYTES ABSOLUTE AUTO 0.6 K/mm3 (0.0-0.8); MONOCYTES PERCENT AUTO 7.7 % (0.0-8.0); NEUTROPHILS ABSOLUTE AUTO 5.1 K/mm3 (1.8-7.7); NEUTROPHILS PERCENT AUTO 71.1 % (41.0-71.0); PLATELET COUNT,PLT 162 K/mm3 (150-400); RED BLOOD CELL COUNT 4.77 M/mm3 (4.52-5.90); WHITE BLOOD CELL COUNT,WBC 7.18 K/mm3 (3.9-11.3)
[2024-10-21 14:36] LABS: A/G RATIO 0.8 (1-2); ALBUMIN 3.3 g/dl (3.4-5.0); ANION GAP 16.8 (5-15); BILIRUBIN TOTAL 1.1 mg/dL (0.2-1.0); BUN/CREATININE RATIO 7.5 (14-18); CALCIUM 8.8 mg/dL (8.5-10.1); CREATININE 0.8 mg/dL (0.7-1.3); EST CRCL DRUG DOSING (CG) 94.33 mL/min; ETHANOL BLOOD MEDICAL 0.05 gm% (0.00); MAGNESIUM 1.5 mg/dL (1.8-2.4); POTASSIUM,K 3.8 mEq/L (3.5-5.1); PROTEIN TOTAL,TP 7.3 g/dl (6.4-8.2)
[2024-10-21] MEDS: Sodium Chloride 0.9% 10 ML Syringe FLUSH PRN (16:09)
[2024-10-21] MEDS: ceFAZolin 2 GM Vial IVPUSH ONE (16:09)
[2024-10-21] MEDS: LORazepam 1 MG Tab PO ONE (18:20)
[2024-10-21] MEDS: Magnesium Oxide 400 MG Tab PO ONE (18:20)
[2024-10-21] MEDS: Apixaban 5 MG Tab PO ONE (18:20)
[2024-10-21] MEDS: amLODIPine 10 MG Tab PO ONE (18:20)
[2024-10-21 18:48] VITALS: BP 155/89; PULSE 89
== END 2024-10-21 19:05 | disposition home or self-care (01) ==
LOC: JD.ED 13:26
DX: F10.10 Alcohol abuse, uncomplicated (principal); L03.115 Cellulitis of right lower limb; I82.409 Acute embolism and thrombosis of unspecified deep veins of unspecified lower extremity; I10 Essential (primary) hypertension; J45.909 Unspecified asthma, uncomplicated; E78.00 Pure hypercholesterolemia, unspecified; Z79.899 Other long term (current) drug therapy; Z86.16 Personal history of COVID-19
CPT/HCPCS: 36415; 71045; 80053; 80307; 83735; 83880; 85025; 93970; 96374; 99284; A9270; J0690

== ENCOUNTER 2024-10-24 11:17 | Emergency (ER) | payer MEDICARE, MEDICAID ==
[2024-10-24 11:39] VITALS: BP 140/83; PULSE 64
[2024-10-24] MEDS: Sodium Chloride 0.9% 1,000 ML IV ONE (12:08)
[2024-10-24] MEDS: Albuterol/Ipratropium 3.0-0.5 MG/3 ML Neb Soln NEB ONE (12:20)
[2024-10-24 12:29] LABS: BASOPHILS ABSOLUTE AUTO 0.1 K/mm3 (0.0-0.2); BASOPHILS PERCENT AUTO 0.8 % (0.0-1.0); EOSINOPHILS ABSOLUTE AUTO 0.3 K/mm3 (0.0-0.4); HEMATOCRIT 39.6 % (42.0-52.0); HEMOGLOBIN 12.6 gm/dl (14.0-18.0); IMMATURE GRAN ABSOLUTE AUTO 0.03 K/mm3 (0.00-0.05); IMMATURE GRAN PERCENT AUTO 0.5 % (0.0-0.4); LYMPHOCYTES ABSOLUTE AUTO 1.5 K/mm3 (1.0-4.8); LYMPHOCYTES PERCENT AUTO 23.9 % (24.0-44.0); MEAN CORPUSCULAR HEMOGLOBIN 28.4 pg (28.0-32.0); MEAN CORPUSCULAR HGB CONC 31.8 g/dl (32.0-36.0); MEAN PLATELET VOLUME 8.9 fl (9.4-12.4); MONOCYTES ABSOLUTE AUTO 0.5 K/mm3 (0.0-0.8); MONOCYTES PERCENT AUTO 7.9 % (0.0-8.0); NEUTROPHILS ABSOLUTE AUTO 3.8 K/mm3 (1.8-7.7); NEUTROPHILS PERCENT AUTO 61.9 % (41.0-71.0); PLATELET COUNT,PLT 156 K/mm3 (150-400); RED BLOOD CELL COUNT 4.43 M/mm3 (4.52-5.90); WHITE BLOOD CELL COUNT,WBC 6.18 K/mm3 (3.9-11.3)
[2024-10-24 12:30] LABS: MEAN CORPUSCULAR VOLUME 89.4 fl (83.0-99.0)
[2024-10-24 12:48] LABS: A/G RATIO 0.9 (1-2); ALBUMIN 3.1 g/dl (3.4-5.0); ANION GAP 12.2 (5-15); BILIRUBIN TOTAL 0.6 mg/dL (0.2-1.0); BUN/CREATININE RATIO 27.5 (14-18); CALCIUM 9.1 mg/dL (8.5-10.1); CREATININE 0.8 mg/dL (0.7-1.3); EST CRCL DRUG DOSING (CG) 94.33 mL/min; MAGNESIUM 1.9 mg/dL (1.8-2.4); POTASSIUM,K 4.2 mEq/L (3.5-5.1); PROTEIN TOTAL,TP 6.7 g/dl (6.4-8.2)
[2024-10-24] MEDS: Iopamidol 612 MG/ML 100 ML Bottle IVPUSH ONE (13:23)
[2024-10-24] MEDS: Iopamidol 612 MG/ML 30 ML SDV IVPUSH ONE (13:23)
[2024-10-24] MEDS: Sodium Chloride 0.9% 10 ML Syringe FLUSH ONE (13:24)
[2024-10-24 13:44] LABS: APPEARANCE,URINE CLEAR (Clear); BILIRUBIN,URINE NEGATIVE (Negative); COLOR,URINE YELLOW (Yellow); GLUCOSE,URINE NEGATIVE (Negative); KETONES,URINE NEGATIVE (Negative); LEUKOCYTE ESTERASE,URINE NEGATIVE (Negative); NITRITE,URINE NEGATIVE (Negative); OCCULT BLOOD,URINE TRACE-INTACT (Negative); PROTEIN,URINE NEGATIVE (Negative); UROBILINOGEN,URINE 0.2 (0.2-1.0)
[2024-10-24 14:11] LABS: BACTERIA,URINE RARE /hpf (FEW); MUCUS,URINE NOT SEEN /hpf (FEW); SQUAMOUS EPITHELIAL CELLS,UR 0-5 /hpf (0-5); WBC,URINE 0-5 /hpf (0-5)
== END 2024-10-24 14:49 | disposition other institution (70) ==
LOC: JD.ED 11:17
DX: E86.0 Dehydration (principal); R19.7 Diarrhea, unspecified; I10 Essential (primary) hypertension; J45.909 Unspecified asthma, uncomplicated; F17.210 Nicotine dependence, cigarettes, uncomplicated; Z79.899 Other long term (current) drug therapy; E78.00 Pure hypercholesterolemia, unspecified; Z86.16 Personal history of COVID-19; M79.605 Pain in left leg; J44.89 Other specified chronic obstructive pulmonary disease; Z79.01 Long term (current) use of anticoagulants; Z79.51 Long term (current) use of inhaled steroids
CPT/HCPCS: 36415; 70450; 70450-26; 71045; 71045-26; 71275; 71275-26; 73552-26-LT; 73552-LT; 73590-26-LT; 73590-LT; 74177; 74177-26; 80053; 80307; 81001; 83735; 83880; 85025; 87428-QW; 93005; 93010; 94640; 96360; 96374; 99285; 99285-25; A9270-GY; J2405; J7030; Q9967

== ENCOUNTER 2024-10-24 17:23 | Emergency (ER) | payer MEDICARE, MEDICAID ==
[2024-10-24] MEDS: Iopamidol 755 Mg/ML 100 ML Bottle IVPUSH ONE (19:00)
[2024-10-24] MEDS: Sodium Chloride 0.9% 100 ML IV SCH (19:00)
[2024-10-24] MEDS: Ondansetron 4 MG/2 ML SDV IVPUSH ONE (20:03)
[2024-10-24 21:42] VITALS: BP 131/68; PULSE 67
== END 2024-10-24 20:20 | disposition other institution (70) ==
LOC: JD.ED 17:23
DX: M79.605 Pain in left leg (principal); I10 Essential (primary) hypertension; E78.00 Pure hypercholesterolemia, unspecified; F17.210 Nicotine dependence, cigarettes, uncomplicated; J44.89 Other specified chronic obstructive pulmonary disease; Z79.899 Other long term (current) drug therapy; Z79.01 Long term (current) use of anticoagulants; Z79.51 Long term (current) use of inhaled steroids; Z86.16 Personal history of COVID-19; X58.XXXA Exposure to other specified factors, initial encounter
CPT/HCPCS: 70450; 71275; 73552; 73590; 96374; 99285; J2405; Q9967

== ENCOUNTER 2024-11-30 17:29 | Emergency (ER) | payer MEDICARE, MEDICAID ==
[2024-11-30] MEDS: Apixaban 5 MG Tab PO ONE (19:27)
[2024-11-30 19:28] VITALS: BP 147/86; PULSE 80
== END 2024-11-30 19:28 | disposition home or self-care (01) ==
LOC: JD.ED 17:29
DX: M79.605 Pain in left leg (principal); I10 Essential (primary) hypertension; E78.00 Pure hypercholesterolemia, unspecified; J45.909 Unspecified asthma, uncomplicated; Z79.899 Other long term (current) drug therapy; Z79.01 Long term (current) use of anticoagulants; Z86.16 Personal history of COVID-19
CPT/HCPCS: 73502-26-LT; 73502-LT; 73562-26-LT; 73562-LT; 93971-26-LT; 93971-LT; 99284; A9270-GY